=== PATIENT | female | born 1955 | race Caucasian/White ===

== ENCOUNTER 2016-08-23 05:51 | Outpatient (CLI) | payer OTHER, BC | END 2016-08-23 05:52 | disposition home or self-care (01) | LOC: NAVSJIPCSP 05:51 | PROVIDERS: ATTEND Internal Medicine | DX: E78.5 Hyperlipidemia, unspecified (principal); E03.9 Hypothyroidism, unspecified; F32.4 Major depressive disorder, single episode, in partial remission | CPT/HCPCS: 36415; 80061; 82306 ==